=== PATIENT | male | born 1955 | race African-American/Black ===

== ENCOUNTER 2022-08-03 12:46 | Inpatient (IN) | payer BC ==
[~2022-08-03] VITALS: Ht 175.3 cm; Wt 74.8 kg
[2022-08-03 00:45] VITALS: BP 137/75
[2022-08-03] MEDS ORDERED: ONDANSETRON HCL 4MG/2ML INJ IV ONE (13:45)
[2022-08-03] MEDS ORDERED: SODIUM CHLORIDE 0.9% 500 ML IV ONE (13:45)
[2022-08-03] MEDS ORDERED: PANTOPRAZOLE SODIUM 40 MG/VIAL IV ONE (13:45)
[2022-08-03] MEDS ORDERED: DILTIAZEM HCL 5MG/ML 5ML VIAL IV ONE (13:45)
[2022-08-03] MEDS ORDERED: DILTIAZEM HCL 120MG CAPSULE ER 24HR PO ONE (14:15)
[2022-08-03 14:43] LABS: BASOPHILS % 0.1 % (0.0-2.0); CHLORIDE 87 mEq/L (98-107); HEMATOCRIT. 47.2 % (42.0-52.0); HEMOGLOBIN. 15.9 g/dL (14.0-18.0); LYMPHOCYTES % 10.3 % (20.0-50.0); MEAN CORPUSCULAR HEMOGLOBIN 32.4 pg (28.0-32.0); MEAN CORPUSCULAR VOLUME 96.2 fL (80.0-94.0); MEAN PLATELET VOLUME 7.6 fl (7.4-10.4); MONOCYTES % 9.2 % (2.0-8.0); NEUTROPHILS % 80.4 % (40.0-76.0); PLATELET 253 x1000/uL (130-400); RED BLOOD CELL COUNT 4.91 mill/uL (4.7-6.1); RED CELL DISTRIBUTION WIDTH 13.7 % (11.6-14.6)
[2022-08-03] MEDS ORDERED: MORPHINE SULFATE 4 MG/ML CPJ (NOT FOR IM USE) IV ONE (15:00)
[2022-08-03 15:07] LABS: ETHANOL BLOOD < 10 mg/dL
[2022-08-03] MEDS ORDERED: ONDANSETRON HCL 4MG/2ML INJ IV PRN (16:45)
[2022-08-03] MEDS ORDERED: SODIUM CHLORIDE 0.9% 1,000 ML IV ONE (17:00)
[2022-08-03] MEDS ORDERED: SODIUM CHLORIDE 0.9% 1,000 ML IV NR (17:15)
[2022-08-03] MEDS ORDERED: PIPERACILLIN/TAZOBACTAM 3.375GM/50ML PREMIX IV ONE (17:15)
[2022-08-03] MEDS ORDERED: PIPERACILLIN/TAZ 3.375G PREMIX 50 ML IV NR (17:15)
[2022-08-03 18:38] LABS: INR 1.1; PROTHROMBIN TIME 11.4 sec (9.6-11.0)
[2022-08-03 18:49] LABS: HEPATITIS B SURFACE ANTIGEN NEGATIVE
[2022-08-03] MEDS ORDERED: ACETAMINOPHEN 325MG TABLET PO PRN (19:15)
[2022-08-03] MEDS ORDERED: DIPHENHYDRAMINE 50MG/ML VIAL IV PRN (19:15)
[2022-08-03] MEDS ORDERED: MORPHINE SULFATE 2 MG/ML CPJ (NOT FOR IM USE) IV PRN (19:15)
[2022-08-03] MEDS ORDERED: IPRATROPIUM/ALBUTEROL 0.5-3(2.5)MG/3ML NEB HHN PRN (19:15)
[2022-08-03] MEDS ORDERED: CLONIDINE 0.1MG TABLET PO PRN (19:15)
[2022-08-03] MEDS ORDERED: NALOXONE HCL 0.4MG/ML VIAL IV PRN (19:30)
[2022-08-03 19:41] LABS: *AMPHETAMINES SCREEN URINE NEGATIVE (NEGATIVE); *BARBITURATES SCREEN URINE NEGATIVE (NEGATIVE); *BENZODIAZEPINES SCREEN URINE NEGATIVE (NEGATIVE); *COCAINE SCREEN URINE NEGATIVE (NEGATIVE); CANNABINOID URINE SCREEN NEGATIVE (NEGATIVE); METHADONE URINE SCREEN NEGATIVE (NEGATIVE); OPIATES URINE SCREEN PRESUMTIVE POSITIVE (NEGATIVE); PHENCYCLIDINE URINE SCREEN NEGATIVE (NEGATIVE)
[2022-08-03] MEDS: PANTOPRAZOLE SODIUM 40 MG/VIAL IV SCH (20:25)
[2022-08-03] MEDS ORDERED: DEXTROSE 50% WATER 50ML SYRINGE IV PRN (22:45)
[2022-08-04] MEDS: BLOOD SUGAR DIAGNOSTIC STRIP TEST SCH ×3 (06:52→17:04)
[2022-08-04 07:30] LABS: CHLORIDE 102 mEq/L (98-107)
[2022-08-04 07:32] LABS: BASOPHILS % 0.1 % (0.0-2.0); EOSINOPHILS % 0.5 % (0.0-5.0); HEMATOCRIT. 42.6 % (42.0-52.0); HEMOGLOBIN. 14.7 g/dL (14.0-18.0); LYMPHOCYTES % 16.3 % (20.0-50.0); MEAN CORPUSCULAR HEMOGLOBIN 33.2 pg (28.0-32.0); MEAN PLATELET VOLUME 7.5 fl (7.4-10.4); MONOCYTES % 11.1 % (2.0-8.0); PLATELET 192 x1000/uL (130-400); RED BLOOD CELL COUNT 4.44 mill/uL (4.7-6.1); RED CELL DISTRIBUTION WIDTH 13.6 % (11.6-14.6)
[2022-08-04 08:00] VITALS: BP 103/70
[2022-08-04] MEDS: INSULIN LISPRO 100 UNITS/ML SUBCUT SCH ×2 (08:10→12:24)
[2022-08-04] MEDS: PANTOPRAZOLE SODIUM 40 MG/VIAL IV SCH ×2 (08:50→20:32)
[2022-08-04 12:00] VITALS: BP 135/81
[2022-08-04 16:00] VITALS: BP 134/86
[2022-08-04 20:00] VITALS: BP 123/78
[2022-08-04] MEDS: METOPROLOL TARTRATE 50MG TABLET PO SCH (20:33)
[2022-08-05 00:05] VITALS: BP 108/74
[2022-08-05 04:00] VITALS: BP 130/98
[2022-08-05 07:56] LABS: BASOPHILS % 0.2 % (0.0-2.0); HEMATOCRIT. 43.5 % (42.0-52.0); HEMOGLOBIN. 14.8 g/dL (14.0-18.0); LYMPHOCYTES % 24.9 % (20.0-50.0); MEAN CORPUSCULAR VOLUME 96.6 fL (80.0-94.0); MEAN PLATELET VOLUME 7.5 fl (7.4-10.4); NEUTROPHILS % 61.9 % (40.0-76.0); PLATELET 160 x1000/uL (130-400); RED CELL DISTRIBUTION WIDTH 13.8 % (11.6-14.6)
[2022-08-05 08:00] VITALS: BP 133/93
[2022-08-05 08:07] LABS: CHLORIDE 104 mEq/L (98-107)
[2022-08-05] MEDS: PANTOPRAZOLE SODIUM 40 MG/VIAL IV SCH (10:02)
[2022-08-05] MEDS: METOPROLOL TARTRATE 50MG TABLET PO SCH (10:02)
[2022-08-05 12:00] VITALS: BP 112/75
[2022-08-05] MEDS ORDERED: METO-539 PO (12:22)
== END 2022-08-05 13:45 | disposition left against medical advice (07) | DRG 434 ==
LOC: ER 12:46 → MICUSO 18:23 → 7WST 08-04 00:45
PROVIDERS: ADMIT Internal Medicine; ATTEND Internal Medicine
DX: K70.10 Alcoholic hepatitis without ascites (principal); I48.91 Unspecified atrial fibrillation; I10 Essential (primary) hypertension; K76.0 Fatty (change of) liver, not elsewhere classified; Z20.822 Contact with and (suspected) exposure to COVID-19; R74.01 Elevation of levels of liver transaminase levels; Z53.29 Procedure and treatment not carried out because of patient's decision for other reasons; F10.20 Alcohol dependence, uncomplicated
CPT/HCPCS: 36415; 71045; 74176; 76700; 80048; 80053; 80076; 80305; 80320; 82962; 83036; 83880; 84484; 85025; 86705; 86709; 86803; 86850; 86900; 87340; 87426; 93005; 93306; 93970; 99291; C1893; C9113; J1815; J2270; J2405; J2543; J3490; J7040; G0480